=== PATIENT | male | born 1980 | race African-American/Black ===

== ENCOUNTER 2021-03-21 23:07 | Emergency (ER) | payer OTHER, SELFPAY ==
[2021-03-21 23:41] VITALS: BP 141/85; PULSE 91; RESP 18; TEMP 37.1; O2SAT 98; BMI 63.8
--- NOTE | 2021-03-22 07:00 | ED_ITS ---
HPI - Skin/Abscess/Foreign Bdy General Chief complaint: Skin/Abscess/Foreign Body Stated complaint: cyst Time Seen by Provider: 03/22/21 02:17 Source: patient Mode of arrival: ambulatory History of Present Illness HPI narrative: 40-year-old male who presents with an extensive history of hidradenitis and now states that he has experiencing increasing problem with the right in for mammary and axillary folds. He denies any associated fevers, chills but states that he is noticed a fair amount of drainage despite multiple attempts to keep the area dry and well cleaned. He endorses that last year he underwent extensive treatment. Related Data Previous Rx's Medication Instructions Recorded clindamycin HCl 300 mg capsule 300 mg PO Q8H 7 Days #21 cap 03/22/21 Allergies Allergy/AdvReac Type Severity Reaction Status Date / Time No Known Allergies Allergy Unverified 04/25/20 19:39 [No Known Allergies*] Review of Systems Review of Systems: Pertinent positives and negatives as stated in HPI 10 point review of systems otherwise negative. PMFSH Past Medical History Source: nursing notes reviewed Medical History Asthma Diabetes HTN (hypertension) Hx of abscess of skin and subcutaneous tissue Social History Social History Advance Directives: No Advance Directives Information Provided: No Physical Exam Vital Signs: Vital Signs: Last Vital Signs Temp 98.7 F 03/21/21 23:41 Pulse 91 03/21/21 23:41 Resp 18 03/21/21 23:41 BP 141/85 H 03/21/21 23:41 Pulse Ox 98 03/21/21 23:41 Body Mass Index 63.8 VITAL SIGNS: Reviewed. GENERAL: Well developed, well nourished, in no acute distress. HEAD: Normocephalic/atraumatic EYES: PERRLA, EOMI LUNGS: Normal breath sounds. No adventitious sounds or accessory muscle use. SpO2<98>, there is noted small fluctuant area at the mid inframammary fold area that is noted to be draining more lateral into the crease extending into the right axilla there is mild erythema CARDIOVASCULAR: Regular rate and rhythm without noted murmurs ABDOMEN: Morbidly obese, Soft, non-tender, non-distended with bowel sounds. SKIN: Inspection of the skin reveals no rashes, but further details as above NEUROLOGIC: Alert and oriented x 4. Course Course Course Narrative: 40-year-old male with history and clinical presentation consistent with hidradenitis with what appears to be a more extensive area at t he right axilla and inframammary fold. After further discussion with the patient this issue in was made to place patient on antibiotics and that he will follow-up with Dr. Najera on Wednesday for the possibility of more aggressive intervention. Discharge Plan Discharge Clinical Impression: Hidradenitis suppurativa of right axilla Patient Disposition: Home, Self-Care Instructions: Hidradenitis Suppurativa (ED) Additional Instructions: 1. Continue to keep area well cleansed and as dry as possible. 2. Continue to take the antibiotics that you have been provided until directed otherwise by your surgical consult. 3. I have provided a referral for General surgery below and recommend that you call on Wednesday. Return to the ER for any worsening of your symptoms. Prescriptions: New clindamycin HCl 300 mg capsule 300 mg PO Q8H 7 Days Qty: 21 RF: 0 Referrals: Shirlene Morrow MD [Primary Care Provider] - 2 days (Evaluation for hidradenitis.) Bladimir Najera MD [Physician] - 2 days (Evaluation increasing hidradenitis to right axilla, patient started on clindamycin.)
== END 2021-03-22 08:14 | disposition home or self-care (01) ==
PROVIDERS: Emergency Provider Student in an Organized Health Care Education/Training Program; PCP Internal Medicine
DX: L73.2 Hidradenitis suppurativa (principal); E11.9 Type 2 diabetes mellitus without complications; I10 Essential (primary) hypertension
CPT/HCPCS: 99283

== ENCOUNTER 2022-04-18 12:21 | Emergency (ER) | payer OTHER, SELFPAY ==
[2022-04-18 12:36] VITALS: BP 174/93; PULSE 95; RESP 19; TEMP 36.6; O2SAT 97; BMI 64.5
== END 2022-04-18 14:01 | disposition left against medical advice (07) ==
PROVIDERS: Emergency Provider Emergency Medicine; PCP Internal Medicine
DX: U07.1 COVID-19 (principal); L02.411 Cutaneous abscess of right axilla
CPT/HCPCS: 99281

== ENCOUNTER 2022-05-08 16:09 | Outpatient (REF) | payer OTHER, SELFPAY ==
[2022-05-10 14:40] LABS: H Pylori Breath Test Negative (Negative)
== END 2022-05-08 16:10 | disposition home or self-care (01) ==
LOC: HO.LNP 16:09
PROVIDERS: Visit Provider Physician Assistant
DX: Z01.818 Encounter for other preprocedural examination (principal); E66.01 Morbid (severe) obesity due to excess calories; G47.30 Sleep apnea, unspecified; I10 Essential (primary) hypertension; E11.9 Type 2 diabetes mellitus without complications
CPT/HCPCS: 83013

== ENCOUNTER 2022-05-15 09:04 | Outpatient (REF) | payer OTHER, SELFPAY ==
--- NOTE | ~2022-05-15 | XR_ITS ---
EXAMINATION: XR CHEST CLINICAL INFORMATION: Preprocedure chest x-ray COMPARISON: None TECHNIQUE: 2 views of the chest were obtained. FINDINGS: No significant abnormality is noted involving the heart, lungs, mediastinum, bony thorax or soft tissues. XR/XR chest 2V IMPRESSION: Unremarkable examination.
[2022-05-15 09:24] LABS: MANUAL DIFF FLAG NO
--- NOTE | 2022-05-15 09:34 | ECG_ITS ---
Test Reason : cp Blood Pressure : / mmHG Vent. Rate : 089 BPM Atrial Rate : 089 BPM P-R Int : 152 ms QRS Dur : 100 ms QT Int : 392 ms P-R-T Axes : 068 -12 033 degrees QTc Int : 476 ms Normal sinus rhythm Normal ECG No previous ECGs available Referred By: Shama Lozano Electronically Signed By:DIMPLE BALDWIN
[2022-05-15 09:51] LABS: Basophils Percent Auto 0.6 % (0-2); Eosinophils Absolute Auto 0.1 X10*3/uL (0.0-0.4); Eosinophils Percent Auto 1.6 % (0-4); Hematocrit 36.6 % (42.0-52.0); Hemoglobin 11.7 g/dl (14.0-18.0); Imm Gran Abs Auto 0.03 X10*3/uL (0.00-0.03); Imm Gran Pct Auto 0.4 % (0.0-0.4); Lymphocytes Absolute Auto 2.4 X10*3/uL (1.2-4.9); Lymphocytes Percent Auto 35.5 % (20-40); Mean Corpuscular Hemoglobin 27.5 pg (27.0-33.0); Mean Corpuscular Volume 86.1 fL (80.0-98.0); Mean Platelet Volume 8.5 fL (9.4-12.4); Monocytes Absolute Auto 0.5 X10*3/uL (0.1-1.2); Monocytes Percent Auto 7.9 % (2-11); Neutrophils Absolute Auto 3.6 x10*3/uL (2.0-8.3); Platelet Count 313 X10*3/uL (160-400); Red Blood Count 4.25 X10*6/uL (4.60-5.80); Red Cell Distribution Width 13.6 % (11.0-16.0); White Blood Count 6.7 X10*3/uL (4.8-10.8)
[2022-05-15 09:58] LABS: Estimated Average Glucose 192 mg/dL; Hemoglobin A1c % 8.3 %
[2022-05-15 10:29] LABS: Alanine Aminotransferase 23 U/L (0-40); Albumin Level 4.2 g/dL (3.5-5.0); Alkaline Phosphatase 76 U/L (39-117); Anion Gap 16 (12-20); Aspartate Amino Transferase 25 U/L (5-37); Bilirubin Total 0.3 mg/dL (0.0-1.0); Blood Urea Nitrogen 28 mg/dL (9-16); C Reactive Protein 4.02 mg/dL (< or = 0.50); Calcium 9.4 mg/dL (8.4-10.2); Carbon Dioxide 25 mmol/L (22-29); Chloride 98 mmol/L (96-108); Cholesterol 154 mg/dL; Estimated Glomerular Filt Rate > 60; Glucose Random 167 mg/dL (60-115); HDL Cholesterol 25 mg/dL; Iron 43 mcg/dL (45-160); LDL Cholesterol Calculated 118 mg/dl; Percent Iron Saturation 15 % (15-50); Potassium 4.9 mmol/L (3.3-5.1); Sodium 134 mmol/L (135-145); Total Iron Binding Capacity 279 mcg/dL (228-428); Total Protein 9.1 g/dL (6.5-8.0); Triglycerides 58 mg/dL; Unsaturated Iron Binding 236 ug/dL
[2022-05-15 10:48] LABS: Ferritin 301 ng/mL (20-250); TSH reflex Free T4 0.91 uIU/mL (0.32-4.0); Vitamin D 25-OH Total 21.6 ng/mL (>30)
[2022-05-15 11:11] LABS: Folate 10.6 ng/mL (> or = 4.0); Vitamin B12 384 pg/mL (200-900)
[2022-05-15 11:33] LABS: Insulin 20 uU/mL (2-29)
[2022-05-17 13:41] LABS: Calcium (PTHI) 9.4 mg/dL (8.6-10.3); PTHI 47 pg/mL (16-77)
[2022-05-20 06:36] LABS: Zinc 83 mcg/dL (60-130)
[2022-05-20 07:56] LABS: Vitamin B1 8 nmol/L (8-30)
[2022-05-21 01:31] LABS: Vitamin A 30 mcg/dL (38-98)
== END 2022-05-15 09:05 | disposition home or self-care (01) ==
LOC: HO.XRAY 09:04
PROVIDERS: PCP Internal Medicine; Visit Provider Physician Assistant
DX: Z01.818 Encounter for other preprocedural examination (principal); E11.9 Type 2 diabetes mellitus without complications; E66.01 Morbid (severe) obesity due to excess calories; G47.33 Obstructive sleep apnea (adult) (pediatric); I10 Essential (primary) hypertension
CPT/HCPCS: 36415; 71046; 80053; 80061; 82306; 82607; 82728; 82746; 83036; 83525; 83540; 83970; 84425; 84443; 84590; 84630; 85025; 86140; 93005

== ENCOUNTER 2022-05-26 17:40 | Emergency (ER) | payer OTHER, SELFPAY ==
[2022-05-26 17:59] VITALS: BP 163/91; PULSE 93; RESP 20; TEMP 36.6; O2SAT 98; BMI 60.6
[2022-05-26 21:18] VITALS: BP 139/76; PULSE 79; RESP 20; TEMP 36.7; O2SAT 96
--- NOTE | 2022-05-26 22:12 | ED_ITS ---
HPI - General Adult General Chief complaint: Skin/Abscess/Foreign Body Stated complaint: HS, abdominal pain Time Seen by Provider: 05/26/22 21:13 Source: patient Mode of arrival: ambulatory Limitations: no limitations History of Present Illness HPI narrative: 41 yold male with pmh of hidradenitis presents to the ED for many abscess. patient has had this probem for many years. patient states no present general surgeon for follow up. patient denies any fever chills. Related Data Home Medications Medication Instructions Recorded Confirmed glipizide 5 mg tablet 5 mg PO BID 04/20/22 lisinopril 40 mg tablet 40 mg PO DAILY 04/20/22 metformin 1,000 mg tablet 1,000 mg PO BID 04/20/22 hydrochlorothiazide 25 mg tablet 25 mg PO DAILY 05/07/22 levalbuterol tartrate 45 2 puff inhalation Q4-6H 05/07/22 mcg/actuation aerosol inhaler Previous Rx's Medication Instructions Recorded cholecalciferol (vitamin D3) 50 50 mcg PO DAILY #30 caps 05/15/22 mcg (2,000 unit) capsule iron,carbonyl 65 mg-vitamin C 125 1 tab PO BEDTIME #30 tabs 05/15/22 mg tablet,delayed release (Vitron-C) vitamin A palmitate 10,000 unit 20,000 unit PO DAILY 2 weeks #28 05/21/22 tablet tabs clindamycin phosphate 1 % topical 1 appl topical BID 10 days #30 05/26/22 gel grams doxycycline hyclate 100 mg capsule 100 mg PO BID 7 days #14 caps 05/26/22 Allergies Allergy/AdvReac Type Severity Reaction Status Date / Time No Known Allergies Allergy Verified 05/07/22 08:40 [No Known Allergies*] Review of Systems Review of Systems: Mutliple hidarenditis supperiva PMFSH Past Medical History Medical History (Updated 05/26/22 @ 22:20 by ALEXANDRU Trevino) Asthma Diabetes HTN (hypertension) Hx of abscess of skin and subcutaneous tissue Lipoma Sweat gland adenoma Surgical History (Updated 04/20/22 @ 10:29 by Shameka Ruiz CMA) History of dental surgery Social History Social History Advance Directives: No Physical Exam ED Vital Signs: Vital Signs - 24 hr 05/26/22 17:59 05/26/22 21:18 Temperature 97.9 F 98.1 F Pulse Rate 93 79 Respiratory Rate 20 20 Blood Pressure 163/91 H 139/76 Pulse Oximetry 98 96 Oxygen Delivery Method Room Air Room Air BMI result Body Mass Index 60.6 Const General: cooperative, healthy appearing, comfortable, no acute distress, well developed, alert, awake and Physically active Orientation/consciousness: patient oriented x3 [facility] Head: Yes normal to inspection, Yes No palpable skull fracture present, Yes normocephalic, Yes atraumatic and No abrasion Eyes General: appearance normal, both eyes and all related structures Neck Neck: Yes normal visual inspection, Yes full ROM, Yes no lymphadenopathy, Yes no meningeal signs, Yes trachea midline, Yes supple, No anterior neck swelling and No tender Chest Chest palpation & inspection: normal inspection of the chest and normal palpation of entire chest wall Resp Effort & Inspection: normal respiratory effort and able to speak in complete sentences Auscultation: clear to auscultation bilaterally Cardio Jugular venous distension: no JVD Heart sounds: S1 normal heart sound present and S2 normal heart sound present GI Inspection: Yes normal to inspection and No abdominal wall ecchymosis Palpation (GI): Soft to palpation, not firm, nontender, no guarding and not rigid Abdomen image: 1. mutliple drainage abscess hidarneatic suppuriva 2. hidranetiis suppuriva drainage 3. hidraneits suppuriva drainage General: Yes CVA tenderness and Yes no CVA tenderness Back/Spine/Pelvis Back: no CVA tenderness, CVA tenderness and No back tenderness Skin Other: mutliple hidraneitis suppuritva Neuro General: patient oriented x3, gait normal, no meningeal signs and CN's II-XI intact bilaterally Cranial nerves: Yes CN's II-XII intact bilaterally Extrem General: Yes normal to inspection and Yes full ROM Psych Appearance: grossly normal, well kempt and disheveled Course Course Course Narrative: Multiple hidradenitis super relative. Reevaluation(s) Reevaluation #1: Presently no incision and drainage needed. Patient informed the necessary follow-up with General surgery for elective schedule cleaning of multiple hidradenitis suppurativa. Patient will be discharged with doxycycline and clindamycin ointment. Time: 22:18 Medical Decision Making [facility] Narrative Medical decision making narrative: suppuriva adenitis Discharge Plan Discharge Clinical Impression: Hidradenitis suppurativa Patient Disposition: Home, Self-Care Instructions: Hidradenitis Suppurativa (ED) Additional Instructions: You will be discharged with antibiotics. He will be discharged with oral anti biotics and clindamycin cream antibiotic. You need to follow-up with general surgeon. Return to ED for any fever, chills, worsening pain, increased swelling, abdominal pain, profuse discharge, fever, chills, or any other concerning symptoms. Prescriptions: New doxycycline hyclate 100 mg capsule 100 mg PO BID 7 Days Qty: 14 0RF clindamycin phosphate 1 % gel 1 appl topical BID 10 Days Qty: 30 0RF Rx Instructions: place on area of abscesses No Action Vitron-C 65 mg iron- 125 mg tablet,delayed release (DR/EC) 1 tab PO BEDTIME Qty: 30 6RF cholecalciferol (vitamin D3) 50 mcg (2,000 unit) capsule 50 mcg PO DAILY Qty: 30 6RF vitamin A palmitate 10,000 unit tablet 20,000 unit PO DAILY 14 Days Qty: 28 0RF metformin 1,000 mg tablet 1,000 mg PO BID lisinopril 40 mg tablet 40 mg PO DAILY glipizide 5 mg tablet 5 mg PO BID hydrochlorothiazide 25 mg tablet 25 mg PO DAILY levalbuterol tartrate 45 mcg/actuation HFA aerosol inhaler 2 puff inhalation Q4-6H [place] [facility]] (Multiple Hidraadennitis suppuritiva) Stand Alone Forms: Work/School Release Interventions: ED Discharge Assessment Last Done: 05/26/22 22:32 Discharge Date/Time: 05/26/22 22:32 Print Language: Telugu
== END 2022-05-26 22:32 | disposition home or self-care (01) ==
PROVIDERS: Emergency Provider Internal Medicine; PCP Internal Medicine
DX: L73.2 Hidradenitis suppurativa (principal); Z79.899 Other long term (current) drug therapy
CPT/HCPCS: 99283

== ENCOUNTER 2022-12-12 23:50 | Emergency (ER) | payer OTHER, SELFPAY ==
[2022-12-13 00:02] VITALS: BP 164/76; PULSE 103; RESP 20; TEMP 36.8; O2SAT 98; BMI 62.4
--- NOTE | 2022-12-13 01:22 | PC.NURSE ---
pt has large cyst on right side under armpit that is draining yellow-brown foul smelling drainage. Pt states it occasionally starts to drain as pt has HS. No apparent distress at this time
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
[2022-12-13] MEDS: Lidocaine 4 % Patch ADH..PATCH 1 PATCH TRANSDERMA (02:22)
[2022-12-13] MEDS: cephALEXin 500 MG CAPSULE PO (02:22)
[2022-12-13] MEDS: Doxycycline Monohydrate 100 MG CAPSULE PO (02:22)
[2022-12-13] MEDS: Acetaminophen 325 MG TABLET 975 MG PO (02:22)
[2022-12-13] MEDS: Ketorolac Tromethamine 15 MG/ML VIAL IM (02:23)
== END 2022-12-13 02:30 | disposition home or self-care (01) ==
PROVIDERS: Emergency Provider Student in an Organized Health Care Education/Training Program
DX: L73.2 Hidradenitis suppurativa (principal); M79.10 Myalgia, unspecified site; M54.50 Low back pain, unspecified; Z79.899 Other long term (current) drug therapy
CPT/HCPCS: 96372; 99284; J1885